=== PATIENT | male | born 1980 | race Caucasian/White ===

== ENCOUNTER 2018-11-30 14:36 | Emergency (ER) | payer BC ==
[~2018-11-30] VITALS: Ht 175.3 cm; Wt 81.8 kg
[2018-11-30 14:56] VITALS: BP 127/70; PULSE 85; TEMP 97.9
[2018-11-30 17:15] LABS: PH 5 (5-8); SQUAMOUS EPITHELIAL None Seen /hpf; URINE APPEARANCE Clear; URINE BACTERIA None Seen /hpf; URINE BILIRUBIN Negative (NEGATIVE); URINE BLOOD Negative (NEGATIVE); URINE COLOR Yellow; URINE GLUCOSE Negative (NEGATIVE); URINE KETONE Negative (NEGATIVE); URINE LEUKOCYTE ESTERASE Negative (NEGATIVE); URINE NITRATE Negative (NEGATIVE); URINE PROTEIN(semi-quant) Negative (NEGATIVE); URINE RBC 0-2 /hpf; URINE UROBILINOGEN Negative (NEGATIVE); URINE WBC 0-2 /hpf
[2018-11-30 17:30] LABS: COLLECTION METHOD CLEAN CATCH
[2018-11-30] MEDS ORDERED: NORCO 325 MG-51 TAB PO (17:49)
== END 2018-11-30 18:07 | disposition home or self-care (01) ==
LOC: COL.ER 14:36
PROVIDERS: Emergency Medicine
DX: M54.5 Low back pain (principal)
CPT/HCPCS: J1885